=== PATIENT | male | born 1995 | race African-American/Black ===

== ENCOUNTER 2019-10-26 15:03 | Emergency (ER) | payer BC, SELFPAY ==
[2019-10-26 15:07] VITALS: BP 160/137; PULSE 123; RESP 16; TEMP 36.6; O2SAT 100; BMI 40.4
--- NOTE | 2019-10-26 15:12 | XRR_ITS ---
PROCEDURE INFORMATION: Exam: XR Right Knee Exam date and time: 10/26/2019 3:13 PM Age: 24 years old Clinical indication: Injury or trauma; Fall; Initial encounter; Blunt trauma; Knee; Right; Additional info: Trauma/pain TECHNIQUE: Imaging protocol: XR Right knee. Views: 3 views. COMPARISON: No relevant prior studies available. FINDINGS: Bones/joints: There is a small joint effusion. There are mild degenerative changes. The bone density is appropriate. No periosteal reaction. No osteomyelitis. No acute fracture or dislocation. No bony destructive changes. Soft tissues: There is mild subcutaneous edema. No foreign body. No gas in the soft tissues. XR/XR knee RT 3V* [id number] IMPRESSION: No acute bony abnormality.
--- NOTE | 2019-10-26 15:16 | ED_ITS ---
HPI - Extremity Problem General: Chief complaint: Extremity Injury, Lower Stated complaint: right knee pain/fall Time Seen by Provider: 10/26/19 15:15 Source: patient Mode of arrival: ambulatory Limitations: no limitations History of Present Illness: HPI Narrative: Patient is a 24-year-old male who presents to ED today with complaints of right knee pain; patient states he was w alking yesterday when he accidentally tripped and fell and reports knee bent up back behind him; reports he heard a pop ; patient has been ambulatory since the event but with pain MD Complaint: joint paint Onset (ago): day(s) Pain Consistency: constant Location: right Radiation: none Relieving factors: immobilization Exacerbating factors: range of motion, weight bearing and walking Associated symptoms: Reports no associated symptoms Review of Systems Musc: Reports: joint pain; Denies: neck pain, back pain, extremity pain, extremity swelling, joint swelling, redness, joint warmth or joint stiffness PFSH ED PFSH: Statuses (acute, chronic, etc) shown below reflect problem list status as previously entered and may not be historically accurate Social History Smoking and tobacco status: former smoker Physical Exam Const: COMMON NORMALS: no apparent distress, oriented x3, alert and well nourished GENERAL APPEARANCE: cooperative Extremity: RIGHT LOWER EXTREMITY: Yes knee joint (TTP anteriomedial; no laxity noted) Neuro: COMMON NORMALS: oriented x3 SENSORIUM/ORIENTATION: Yes alert Course Vital Signs: Vital signs: Vital Signs Temperature 97.9 F 10/26/19 15:07 Pulse Rate 80 10/26/19 15:36 Respiratory Rate 17 10/26/19 15:30 Blood Pressure 154/113 10/26/19 15:30 Pulse Oximetry 100 10/26/19 15:07 MDM - Extremity (Nontraumatic) Imaging Data^: R knee : Radiologist's impression: [address] [address] XRay Report Signed Patient: Josh Gerard Unit #: [id number] : 1995 Age/Sex: 24 / M ADM Date: 10/26/19 Loc: ER Room/Bed: Attending Dr: Ordering Provider/Ordering MD: Isidra Shaw Date of Service: 10/26/19 Procedure(s): XR knee RT 3V* [id number] Accession Number(s): [id number] Report Number: [id number] PROCEDURE INFORMATION: Exam: XR Right Knee Exam date and time: 10/26/2019 3:13 PM Age: 24 years old Clinical indication: Injury or trauma; Fall; Initial encounter; Blunt trauma; Knee; Right; Additional info: Trauma/pain TECHNIQUE: Imaging protocol: XR Right knee. Views: 3 views. COMPARISON: No relevant prior studies available. FINDINGS: Bones/joints: There is a small joint effusion. There are mild degenerative changes. The bone density is appropriate. No periosteal reaction. No osteomyelitis. No acute fracture or dislocation. No bony destructive changes. Soft tissues: There is mild subcutaneous edema. No foreign body. No gas in the soft tissues. XR/XR knee RT 3V* [id number] IMPRESSION: No acute bony abnormality. Dictated By: Alicia Padron Signed By: Alicia Padorn Signed Date/Time: 10/26/191551 DD/ 155 Discharge Plan Discharge Patient Disposition: Home, Self-Care Clinical Impression: Knee sprain Qualifiers: Encounter type: initial encounter Involved ligament of knee: unspecified ligament Laterality: right Qualified Code(s): S83.91XA - Sprain of unspecified site of right knee, initial encounter Condition: Stable Prescriptions: Discontinued aspirin 325 mg Tablet 1,300 mg PO DAILY PRN (Reason: Pain) RF: 0 Discharge Orders: Discharge Order (Routine); Ordered 10/26/19 Ordered By: Isidra Shaw Discharge Diet: Advance as tolerated Discharge Activity: Increase activity as tolerated Patient Instructions: Knee Sprain (ED), RICE Therapy (ED) Activity Restrictions/Additional Instructions: Follow up with primary care in 2 wks for continued or non-improving pain. 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
[2019-10-26 15:30] VITALS: BP 154/113; RESP 17
[2019-10-26 15:36] VITALS: PULSE 80
[2019-10-26 16:16] VITALS: BP 162/78; PULSE 74; RESP 18; O2SAT 95
== END 2019-10-26 16:17 | disposition home or self-care (01) ==
PROVIDERS: Emergency Provider Physician Assistant
DX: S83.91XA Sprain of unspecified site of right knee, initial encounter (principal); W01.0XXA Fall on same level from slipping, tripping and stumbling without subsequent striking against object, initial encounter; Z87.891 Personal history of nicotine dependence
CPT/HCPCS: 73562; 99281